=== PATIENT | female | born 1985 | race African-American/Black ===

== ENCOUNTER 2016-11-14 06:20 | Emergency (ER) | payer SELFPAY ==
[2016-11-14] MEDS ORDERED: PROCHLORPERAZINE EDISYLATE INJ 10 MG/2 ML VIAL IV ONE (07:29)
[2016-11-14] MEDS ORDERED: DEXAMETHASONE SOD PHOS INJ 10 MG/1 ML VIAL IV ONE (07:29)
[2016-11-14] MEDS ORDERED: DIPHENHYDRAMINE HCL 50 MG/ML VIAL IV ONE (07:29)
[2016-11-14] MEDS ORDERED: NORMAL SALINE 1000 ML 1,000 ML IV ONE (07:33)
[2016-11-14] MEDS ORDERED: KETOROLAC TROMETHAMINE INJ/PF 30 MG/1 ML SDV IV ONE (07:33)
--- NOTE | 2016-11-14 08:25 | ER Document Report ---
ED General - General Chief Complaint: Sore Throat Stated Complaint: SORE THROAT Time Seen by Provider: 11/14/16 07:14 TRAVEL OUTSIDE OF THE [place] IN LAST 30 DAYS: No - HPI Notes: Patient is a 30yo female who presents with sore throat, clogged rt ear, nasal anthony/discharge x 1 day. Pt reports dizziness yesterday but that has since resolved. She started having a mild-mod NIÑO this morning on the sides of her head (no radiation, light/noise sensitivity). Pt has been taking tylenol with some relief. She is still eating and drinking with no problems otherwise. No trouble swallowing or breathing. Denies any fever, ear pain, sinus pain, hoarseness, cough, wheeze, sob, dyspnea, cp, palp, syncope, abd pain, n/v/d, dysuria, hematuria, or rash. PMH significant for HTN and was on Lisinopril 20mg daily until she lost her insurance. [facility] Allergy to PCN's. - Related Data Allergies/Adverse Reactions: amoxicillin [Amoxicillin] Allergy (Verified 01/08/15 18:39) Penicillins Allergy (Verified 01/08/15 18:39) Past Medical History - Social History Smoking Status: Never Smoker Chew tobacco use (# tins/day): No Frequency of alcohol use: None Drug Abuse: None Family History: Arthritis, Hypertension Patient has suicidal ideation: No Patient has homicidal ideation: No - Past Medical History Cardiac Medical History: Reports: Hx Hypertension Endocrine Medical History: Reports: Hx Diabetes Mellitus Type 2 Renal/ Medical History: Denies: Hx Peritoneal Dialysis Past Surgical History: Reports: Hx Section - x2 - Immunizations Immunizations up to date: No Hx Diphtheria, Pertussis, Tetanus Vaccination: No Review of Systems - Review of Systems Notes: REVIEW OF SYSTEMS: CONSTITUTIONAL : Denies fever, chills, or sweats. Denies recent illness. EENT: see hpi CARDIOVASCULAR: Denies chest pain. Denies palpitations or racing or irregular heart beat. Denies ankle edema. RESPIRATORY: Denies cough, cold, or chest congestion. Denies shortness of breath, difficulty breathing, or wheezing. GASTROINTESTINAL: Denies abdominal pain or distention. Denies nausea, vomiting , or diarrhea. Denies blood in vomitus, stools, or per rectum. Denies black, tarry stools. Denies constipation. GENITOURINARY: Denies difficulty urinating, painful urination, burning, frequency, blood in urine, or discharge. MUSCULOSKELETAL: Denies back or neck pain or stiffness. Denies joint pain or swelling. SKIN: Denies rash, lesions or sores. NEUROLOGICAL: Denies confusion or altered mental status. Denies passing out or loss of consciousness. Denies dizziness or lightheadedness. Denies headache. Denies weakness or paralysis or loss of use of either side. Denies problems with gait or speech. Denies sensory loss, numbness, or tingling. Denies seizures. ALL OTHER SYSTEMS REVIEWED AND NEGATIVE. Dictation was performed using [employer] voice recognition software Physical Exam - Vital signs Vitals: Temp Pulse Resp BP Pulse Ox 98.4 F 120 H 18 150/100 H 96 11/14/16 06:35 11/14/16 06:35 11/14/16 06:35 11/14/16 06:35 11/14/16 06:35 Notes: PHYSICAL EXAMINATION: GENERAL: Well-appearing, well-nourished and in no acute distress. obese HEAD: Atraumatic, normocephalic. EYES: Pupils equal round and reactive to light, extraocular movements intact, sclera anicteric, conjunctiva are normal. ENT: EAC cerumen rt. Lt EAC clear. TM's intact b/l without erythema, fluid, or perforation. Nares patent and with clear discharge. oropharynx clear without exudates. 1+ tonsilar hypertrophy and erythemic without exudate. Moist mucous membranes. No sinus tenderness. NECK: Normal range of motion, supple without lymphadenopathy. No rigidity/ meningismus. LUNGS: Breath sounds clear to auscultation bilaterally and equal. No wheezes rales or rhonchi. HEART: Regular rate and rhythm without murmurs, rubs, gallops. ABDOMEN: Soft, nontender, nondistended abdomen. No guarding, no rebound. No masses appreciated. Normal bowel sounds present. No CVA tenderness bilaterally. Musculoskeletal: FROM to passive/active. Strength 5+/5. No deficits noted. Extremities: No cyanosis, clubbing, or edema b/l. Peripheral pulses 2+. Capillary refill less than 3 seconds. NEUROLOGICAL: Cranial nerves grossly intact. Normal speech, normal gait. Normal sensory, motor exams. Reflexes 2+ peripherally. NATALIE's intact. Heel-mejia intact. Pronator neg. PSYCH: Normal mood, normal affect. SKIN: Warm, Dry, normal turgor, no rashes or lesions noted. Course - Re-evaluation Re-evalutation: 11/14/16 09:35 Patient is an afebrile, well-hydrated, 30yo female who presents with acute URI based on H&P. Rapid strep negative. Migraine cocktail given of compazine 10mg , benadryl 50mg, and Toradol 15mg. I also provided her with decadron to help with the NIÑO and the tonsilar hypertrophy. Vitals are stable with a pulse of 99 now. Pt has previously taken Lisinopril 20mg daily but lost her insurance; 20mg Lisinopril given PO today along with a script for her to fill at [facility] ($ 4). Upon re-eval, patient reports that she is feeling much better. The headache is resolved and her sore throat is no longer sore. Pt is feeling really good (tired) and would like to go home. She is going to call for a ride due to her drowsiness. Conservative measures for symptoms. Advised strict BP monitoring and logs with recheck with PCM in 2-3 days. Return to the ED with worsening symptoms otherwise. Risks/benefits reviewed with the patient about dry cough and angioedema while on lisinopril. Pt verbalized understanding and is in agreement. - Vital Signs Vital signs: Temp Pulse Resp BP Pulse Ox 98.4 F 122 H 18 162/98 H 96 11/14/16 06:35 11/14/16 08:00 11/14/16 06:35 11/14/16 08:00 11/14/16 06:35 Discharge - Discharge Clinical Impression: URI (upper respiratory infection) Qualifiers: URI type: unspecified viral URI Qualified Code(s): J06.9 - Acute upper respiratory infection, unspecified Acute pharyngitis Qualifiers: Pharyngitis/tonsillitis etiology: unspecified etiology Qualified Code(s): J02.9 - Acute pharyngitis, unspecified Headache Qualifiers: Headache type: unspecified Headache chronicity pattern: acute headache Intractability: intractable Qualified Code(s): R51 - Headache Condition: Stable Disposition: HOME, SELF-CARE Instructions: Sore Throat ([facility]), Upper Respiratory Illness ([facility]), Viral Syndrome ([facility]) Additional Instructions: Headache The physician does not feel that the headache you are experiencing has a serious underlying cause. Most headaches are due to emotional stress, with resultant muscle tension (tension headache). Occasionally, headaches are secondary to changes in the blood vessels of the scalp (vascular headache and migraine headache). Sometimes, a headache is the first symptom of another developing illness, such as a viral infection. You have no evidence of stroke, bleeding, meningitis, or other serious cause of your headache. The treatment of headaches varies with the severity and cause of the pain. Not all headaches need pain shots. In fact, there is evidence that using narcotics for headaches may make them worse in the long run. The physician will determine the therapy that's in your best interest. If you develop a fever, if the headache is different from any you've previously experienced, or if the headache progressively worsens, then call your physician at once or go to the emergency room. Maintain adequate fluid intake Take meds as directed Monitor BP daily and keep a log tylenol/ibuprofen as needed over the counter cold medication as needed for symptoms F/u: with your PCM in 2-3 days for a recheck and continued management Return to the ED with any worsening symptoms and/or development of fever, headache, chest pain, palpitations, syncope, shortness of breath, trouble breathing, abdominal pain, n/v/d, blood in stool/urine, urinary retention, muscle weakness/paralysis, or other worsening symptoms that are concerning to you. Prescriptions: Lisinopril 20 mg PO DAILY #30 tablet Forms: Elevated Blood Pressure
[2016-11-14] MEDS ORDERED: LISINOPRIL 10 MG TABLET PO ONE (09:29)
[2016-11-14 09:43] VITALS: BP 152/103
== END 2016-11-14 09:52 | disposition home or self-care (01) ==
LOC: ER 06:20
DX: J06.9 Acute upper respiratory infection, unspecified (principal); J02.9 Acute pharyngitis, unspecified; R51 Headache; H92.01 Otalgia, right ear; R09.89 Other specified symptoms and signs involving the circulatory and respiratory systems; R09.81 Nasal congestion
CPT/HCPCS: 99283; 96374; 96375; 87070; 87880; 87077; J1200; J1885; J0780; J7030; J1100

== ENCOUNTER 2017-11-27 11:54 | Emergency (ER) | payer OTHER ==
[2017-11-27 12:05] VITALS: BP 190/109
[2017-11-27] MEDS ORDERED: LISINOPRIL 10 MG TABLET PO ONE (12:27)
[2017-11-27] MEDS ORDERED: DIPH/PERTUSS(ACELL)/TETANUS VAC/PF 0.5 ML SYR (>=10YO) IM ONE (12:27)
--- NOTE | 2017-11-27 12:30 | ER Document Report ---
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 Patient is uncertain when her last tetanus immunization was. Associated Symptoms: Other - Thumb laceration Exacerbated by: Movement Relieved by: Denies Similar symptoms previously: No Recently seen / treated by doctor: No - ROS ROS below otherwise negative: Yes Systems Reviewed and Negative: Yes All other systems reviewed and negative - NEURO Neurology: DENIES: Weakness - REPRODUCTIVE Reproductive: DENIES: : - MUSCULOSKELETAL Musculoskeletal: REPORTS: Extremity pain - DERM Skin Color: Normal Skin Problems: Laceration Past Medical History - General Information source: Patient - Social History Smoking Status: Never Smoker Frequency of alcohol use: None Drug Abuse: None Occupation: [employer] Family History: Arthritis, Hypertension - Past Medical History Cardiac Medical History: Reports: Hx Hypertension Endocrine Medical History: Reports: Hx Diabetes Mellitus Type 2 Renal/ Medical History: Denies: Hx Peritoneal Dialysis Past Surgical History: Reports: Hx Section - x2 - Immunizations Immunizations up to date: No Hx Diphtheria, Pertussis, Tetanus Vaccination: No Vertical Provider Document - CONSTITUTIONAL Agree With Documented VS: Yes Exam Limitations: No Limitations General Appearance: WD/WN, No Apparent Distress - INFECTION CONTROL TRAVEL OUTSIDE OF THE [place] IN LAST 30 DAYS: No - HEENT HEENT: Atraumatic, Normocephalic - NECK Neck: Normal Inspection - RESPIRATORY Respiratory: No Respiratory Distress - CARDIOVASCULAR Pulses: Normal: Radial - MUSCULOSKELETAL/EXTREMETIES Musculoskeletal/Extremeties: WICHO FROM - NEURO Level of Consciousness: Awake, Alert, Appropriate Motor/Sensory: No Motor Deficit - DERM Integumentary: Warm, Dry, Laceration - avulsion lac to distal tip of right thumb , no active bleeding Course - Re-evaluation Re-evalutation: 11/27/17 12:28 Patient states that she is out of her blood pressure medication which is why her blood pressure is up today. Pt without any chest pain, headache difficulty breathing symptoms. - Vital Signs Vital signs: Temp Pulse Resp BP Pulse Ox 98.4 F 98 18 190/109 H 98 11/27/17 12:03 11/27/17 12:03 11/27/17 12:03 11/27/17 12:11/27/17 12:03 Discharge - Discharge Clinical Impression: Hypertension Qualifiers: Hypertension type: unspecified Qualified Code(s): I10 - Essential (primary) hypertension Thumb laceration Qualifiers: Encounter type: initial encounter Damage to nail status: with damage Foreign body presence: without foreign body Laterality: right Qualified Code(s): S61.111A - Laceration without foreign body of right thumb with damage to nail, initial encounter Condition: Stable Disposition: HOME, SELF-CARE Instructions: Dressing Instructions for Open Wounds ([facility]), High Blood Pressure , Requiring Treatment ([facility]), Non-Sutured Laceration ([facility]), Tetanus Immunization Given ([facility]) Additional Instructions: Return immediately for any new or worsening symptoms Followup with your primary care provider, call tomorrow to make a followup appointment Prescriptions: Lisinopril 20 mg PO DAILY #30 tablet Forms: Return to Work Referrals: [facility] [Provider Group] - Follow up as needed [facility] [Provider Group] - Follow up as needed
== END 2017-11-27 12:53 | disposition home or self-care (01) ==
LOC: ER 11:54
DX: S61.011A Laceration without foreign body of right thumb without damage to nail, initial encounter (principal); W31.82XA Contact with other commercial machinery, initial encounter; Y99.0 Civilian activity done for income or pay; Z23 Encounter for immunization; I10 Essential (primary) hypertension; E11.9 Type 2 diabetes mellitus without complications
CPT/HCPCS: 90715; 99282

== ENCOUNTER 2017-11-30 10:53 | Inpatient (IN) | payer OTHER ==
--- NOTE | 2017-11-30 11:29 | ER Document Report ---
ED Medical Screen (RME) - General Chief Complaint: Shortness Of Breath Stated Complaint: SHORTNESS OF BREATH Time Seen by Provider: 11/30/17 11:22 Notes: RAPID MEDICAL EVALUATION DISCLOSURE I have seen this patient as part of a Rapid Medical Evaluation and, if applicable, placed any initially appropriate orders. The patient will be seen and fully evaluated, including a full history and physical exam, by a provider ( in Main ED or Fast Track) when a room becomes available. 31-year-old female PMH hypertension here with complaints of palpitations lightheadedness shortness of breath that started yesterday evening. The symptoms are worse with exertion. She denies chest pain. She has not tried any medication for the symptoms. She has missed the last 2 or 3 days of her blood pressure medicine and states that she has a refill waiting for her at the pharmacy. She denies any previous history of atrial fibrillation. EXAM CTAB Tachycardic with irregularly irregular rhythm TRAVEL OUTSIDE OF THE [place] IN LAST 30 DAYS: No - Related Data Allergies/Adverse Reactions: amoxicillin [Amoxicillin] Allergy (Verified 11/30/17 11:27) Penicillins Allergy (Verified 11/30/17 11:27) Past Medical History - Social History Chew tobacco use (# tins/day): No Frequency of alcohol use: None Drug Abuse: None - Past Medical History Cardiac Medical History: Reports: Hx Hypertension Endocrine Medical History: Reports: Hx Diabetes Mellitus Type 2 Renal/ Medical History: Denies: Hx Peritoneal Dialysis Past Surgical History: Reports: Hx Section - x2 - Immunizations Immunizations up to date: No Hx Diphtheria, Pertussis, Tetanus Vaccination: No Physical Exam - Vital signs Vitals: Temp Pulse Resp BP Pulse Ox 98.4 F 60 20 151/114 H 100 11/30/17 10:56 11/30/17 10:56 11/30/17 10:56 11/30/17 10:56 11/30/17 10:56 Course - Vital Signs Vital signs: Temp Pulse Resp BP Pulse Ox 98.4 F 60 20 151/114 H 100 11/30/17 10:56 11/30/17 10:56 11/30/17 10:56 11/30/17 10:56 11/30/17 10:56
[2017-11-30] MEDS ORDERED: DILTIAZEM HCL/D5W 125 MG/125 ML RTUINJ IV PRN (11:42)
[2017-11-30] MEDS ORDERED: DILTIAZEM HCL INJ 25 MG/5 ML VIAL ONE (12:10)
--- NOTE | 2017-11-30 12:10 | ER Document Report ---
ED Cardiac <LEE ANN GEORGE - Last Filed: 11/30/17 13:00> - General Mode of Arrival: Ambulatory Information source: Patient TRAVEL OUTSIDE OF THE [place] IN LAST 30 DAYS: No <MARLIN CORTES - Last Filed: 11/30/17 17:18> - General Chief Complaint: Shortness Of Breath Stated Complaint: SHORTNESS OF BREATH Time Seen by Provider: 11/30/17 11:22 Notes: 31-year-old female presenting to the emergency department today with complaints of a heart racing sensation. Patient states her symptoms began around 2200 last night. Patient states with this heart racing sensation she has developed shortness of breath. Patient states she is short of breath when trying to walk and also complains of shortness of breath when sitting still if talking. Patient denies any chest pain, leg pain, or leg swelling. (MARLIN CORTES) - Related Data Allergies/Adverse Reactions: amoxicillin [Amoxicillin] Allergy (Verified 11/30/17 11:27) Penicillins Allergy (Verified 11/30/17 11:27) Past Medical History - General Information source: Patient - Social History Smoking Status: Never Smoker Cigarette use (# per day): No Chew tobacco use (# tins/day): No Frequency of alcohol use: None Drug Abuse: None Lives with: Family Family History: Arthritis, Hypertension Patient has suicidal ideation: No Patient has homicidal ideation: No - Past Medical History Cardiac Medical History: Reports: Hx Hypertension Endocrine Medical History: Reports: Hx Diabetes Mellitus Type 2 Renal/ Medical History: Denies: Hx Peritoneal Dialysis Past Surgical History: Reports: Hx Section - x2 - Immunizations Immunizations up to date: No Hx Diphtheria, Pertussis, Tetanus Vaccination: No <MARLIN CORTES - Last Filed: 11/30/17 17:18> Review of Systems - Review of Systems Constitutional: No symptoms reported EENT: No symptoms reported Cardiovascular: See HPI, Palpitations, Heart racing Respiratory: See HPI, Short of breath Gastrointestinal: No symptoms reported Genitourinary: No symptoms reported Female Genitourinary: No symptoms reported Musculoskeletal: No symptoms reported Skin: No symptoms reported Hematologic/Lymphatic: No symptoms reported Neurological/Psychological: No symptoms reported -: Yes All other systems reviewed and negative <MARLIN CORTES - Last Filed: 11/30/17 17:18> Physical Exam <LEE ANN GEORGE - Last Filed: 11/30/17 13:00> <MARLIN CORTES - Last Filed: 11/30/17 17:18> - Vital signs Vitals: Temp Pulse Resp BP Pulse Ox 98.4 F 60 20 151/114 H 100 11/30/17 10:56 11/30/17 10:56 11/30/17 10:56 11/30/17 10:56 11/30/17 10:56 - Notes Notes: Physical Exam: General: Alert, morbidly obese. HEENT: Normocephalic. Atraumatic. PERRL. Extraocular movements intact. Oropharynx clear. Neck: Supple. Non-tender. Respiratory: No respiratory distress. Clear and equal breath sounds bilaterally. Cardiovascular: Tachycardic, irregularly irregular, consistent with A. fib with RVR. Abdominal: Morbidly obese. Non-tender. No distension. Normal Bowel Sounds. Back: Non-tender. No deformity or step off. Extremities: Moves all four extremities. Upper extremities: Normal inspection. Normal ROM. Lower extremities: No calf tenderness with palpation. No edema. Normal ROM. Neurological: Normal cognition. AAOx4. Normal speech. Psychological: Normal affect. Normal Mood. Skin: Warm. Dry. Normal color. (MARLIN CORTES) Course - Laboratory Result Diagrams: 11/30/17 12:03 11/30/17 12:03 - EKG Interpretation by Ri EKG shows normal: [place], QRS Complexes, ST-T Waves. abnormal: Intervals - Prolonged QT interval Rate: Tachycardia - 126 Rhythm: A.Fib When compared to previous EKG there are: Previous EKG unavailable - Consults Angus Gauthier Time consulted: 12:50 Consulted provider: will come to ER <LEE ANN GEORGE - Last Filed: 11/30/17 13:00> - Laboratory Result Diagrams: 11/30/17 12:03 11/30/17 13:42 <MARLIN CORTES - Last Filed: 11/30/17 17:18> - Vital Signs Vital signs: Temp Pulse Resp BP Pulse Ox 98.4 F 60 20 145/99 H 98 11/30/17 10:56 11/30/17 10:56 11/30/17 14:10 11/30/17 14:10 11/30/17 14:10 - Laboratory Laboratory results interpreted by me: 11/30/17 11/30/17 11/30/17 12:03 12:03 12:03 RBC 5.47 H MCV 77 L MCH 24.4 L MCHC 31.7 L RDW 18.0 H Plt Count 511 H Creatine Kinase 185 H TSH 0.37 L Critical Care Note - Critical Care Note Total time excluding time spent on procedures (mins): 30 <LEE ANN GEORGE - Last Filed: 11/30/17 13:00> Discharge - Discharge Admitting Provider: Hospitalist Unit Admitted: IMCU <LEE ANN GEORGE - Last Filed: 11/30/17 13:00> <MARLIN CORTES - Last Filed: 11/30/17 17:18> - Discharge Clinical Impression: New onset atrial fibrillation, Atrial fibrillation with RVR Hypertension Qualifiers: Hypertension type: essential hypertension Qualified Code(s): I10 - Essential ( primary) hypertension Condition: Stable Disposition: ADMITTED INPATIENT Scribe Attestation: 11/30/17 12:48 I personally performed the services described in the documentation, reviewed and edited the documentation which was dictated to the scribe in my presence, and it accurately records my words and actions. (LEE ANN GEORGE) Scribe Documentation - Scribe Written by Alvaro:: Alvaro Hutton, 11/30/2017 1717 acting as scribe for :: Damaris <MARLIN CORTES - Last Filed: 11/30/17 17:18>
[2017-11-30 12:16] LABS: ABSOLUTE BASOPHILS # (AUTO) 0.1 10^3/uL (0.0-0.2); ABSOLUTE LYMPHOCYTES (AUTO) 2.5 10^3/uL (0.5-4.7); ABSOLUTE MONOCYTES (AUTO) 0.8 10^3/uL (0.1-1.4); ABSOLUTE NEUT (AUTO) 4.7 10^3/uL (1.7-8.2); BASOPHILS % (AUTO) 0.6 % (0-2); EOSINOPHILS % (AUTO) 0.4 % (0-6); HEMOGLOBIN 13.3 g/dL (12.0-15.5); LYMPHOCYTES % (AUTO) 31.3 % (13-45); MEAN CORPUSCULAR HEMOGLOBIN 24.4 pg (27.0-33.4); MEAN CORPUSCULAR HGB CONC 31.7 g/dL (32.0-36.0); MEAN CORPUSCULAR VOLUME 77 fl (80-97); MONOCYTES % (AUTO) 10.1 % (3-13); PLATELET COUNT 511 10^3/uL (150-450); RED BLOOD COUNT 5.47 10^6/uL (3.72-5.28); SEGMENTED NEUTROPHILS % (AUTO) 57.6 % (42-78); TOTAL CELLS COUNTED % (AUTO) 100 %; WHITE BLOOD COUNT 8.1 10^3/uL (4.0-10.5)
--- NOTE | 2017-11-30 12:39 | RADIOLOGY REPORT (SQ) ---
EXAM DESCRIPTION: CHEST SINGLE VIEW COMPLETED DATE/TIME: 11/30/2017 12:31 pm REASON FOR STUDY: New onset atrial fibrillation COMPARISON: None. EXAM PARAMETERS: NUMBER OF VIEWS: One view. TECHNIQUE: Single frontal radiographic view of the chest acquired. RADIATION DOSE: NA LIMITATIONS: None. FINDINGS: LUNGS AND PLEURA: No opacities, masses or pneumothorax. No pleural effusion. MEDIASTINUM AND HILAR STRUCTURES: No masses. Contour normal. HEART AND VASCULAR STRUCTURES: Heart normal in size. Normal vasculature. BONES: No acute findings. HARDWARE: None in the chest. OTHER: No other significant finding. IMPRESSION: NO ACUTE RADIOGRAPHIC FINDING IN THE CHEST. TECHNICAL DOCUMENTATION: JOB ID: [id number] [employer]- All Rights Reserved Reading location - IP/workstation name: [email or web address]
[2017-11-30] MEDS ORDERED: DILTIAZEM HCL INJ 25 MG/5 ML VIAL IV ONE (13:14)
--- NOTE | 2017-11-30 13:47 | PDOC H&P ---
History of Present Illness Admission Date/PCP: Currently not established but has been followed by [facility] in the past. Patient complains of: Heart palpitations History of Present Illness: TASIA TAPIA is a 31 year old -[place]une[place] female with a past medical history of hypertension and morbid obesity with a BMI of greater than 50. Patient presented to the emergency department with a chief complaint of having heart flutters and palpitations. According to the patient her symptoms began last night while she was at work approximately 15 hours ago. Patient stated that she was eating ice when she suddenly felt her heart skipping beats. After a few moments the patient reported symptoms of lightheadedness and shortness of breath which were worse with activity. Patient adamantly denied any chest pain. She has not tried any medication for the symptoms. Patient was recently started on lisinopril however she is missed a couple doses because she has been waiting for a refill. Patient denies any history of hypothyroidism or atrial fibrillation. Patient denies any melena hematochezia no epigastric pain. The patient has never been on blood thinners. Patient is not taking oral contraceptives. While in the emergency department the patient was given a bolus of 20 of Cardizem and started on a drip and referred to the hospitalist for admission management. Past Medical History Cardiac Medical History: Reports: Hypertension Pulmonary Medical History: Reports: Sleep Apnea - Suspicion for, has never completed a sleep study Endocrine Medical History: Reports: Diabetes Mellitus Type 2 GI Medical History: Reports: Other - Morbid obesity Past Surgical History Past Surgical History: Reports: Section - x2 Social History Information Source: Patient Occupation: Works in the [employer] at [employer] also has another part-time job Lives with: Family Smoking Status: Never Smoker Frequency of Alcohol Use: Rare - over a week ago Hx Recreational Drug Use: No Hx Prescription Drug Abuse: No - Advance Directive Resuscitation Status: Full Code Surrogate healthcare decision maker:: Mother: Lisa Ashley can be reached at [phone] Family History Family History: Arthritis, Hypertension, Other - Denies any family history of atrial fibrillation or pulmonary emboli Parental Family History Reviewed: Yes Children Family History Reviewed: Yes Sibling(s) Family History Reviewed.: Yes Medication/Allergy Home Medications: Lisinopril [Prinivil] 20 mg PO DAILY 11/30/17 Allergies/Adverse Reactions: amoxicillin [Amoxicillin] Allergy (Verified 11/30/17 11:27) Penicillins Allergy (Verified 11/30/17 11:27) Review of Systems Constitutional: ABSENT: chills, fever(s), headache(s), weight gain, weight loss Eyes: ABSENT: visual disturbances Ears: ABSENT: hearing changes Cardiovascular: PRESENT: dyspnea on exertion, palpitations. ABSENT: chest pain , edema, orthropnea Respiratory: ABSENT: cough, hemoptysis Gastrointestinal: ABSENT: abdominal pain, constipation, diarrhea, hematemesis, hematochezia, nausea, vomiting Genitourinary: ABSENT: dysuria, hematuria Musculoskeletal: ABSENT: joint swelling Integumentary: ABSENT: rash, wounds Neurological: ABSENT: abnormal gait, abnormal speech, confusion, dizziness, focal weakness, syncope Psychiatric: ABSENT: anxiety, depression, homidical ideation, suicidal ideation Endocrine: ABSENT: cold intolerance, heat intolerance, polydipsia, polyuria Hematologic/Lymphatic: ABSENT: easy bleeding, easy bruising Physical Exam Vital Signs: Temp Pulse Resp BP Pulse Ox 98.4 F 60 20 151/114 H 100 11/30/17 10:56 11/30/17 10:56 11/30/17 10:56 11/30/17 10:56 11/30/17 10:56 Intake & Output 11/28/17 11/29/17 11/30/17 23:59 23:59 23:59 Weight 134 kg General appearance: PRESENT: no acute distress, cooperative, morbidly obese, well-developed Head exam: PRESENT: atraumatic, normocephalic Eye exam: PRESENT: conjunctiva pink, EOMI, PERRLA. ABSENT: scleral icterus Ear exam: PRESENT: normal external ear exam Mouth exam: PRESENT: moist, tongue midline Neck exam: ABSENT: carotid bruit, JVD, lymphadenopathy, thyromegaly Respiratory exam: PRESENT: clear to auscultation geraldine. ABSENT: rales, rhonchi, wheezes Cardiovascular exam: PRESENT: irregular rhythm. ABSENT: diastolic murmur, rubs , systolic murmur Pulses: PRESENT: normal dorsalis pedis pul Vascular exam: PRESENT: normal capillary refill GI/Abdominal exam: PRESENT: normal bowel sounds, soft. ABSENT: distended, guarding, mass, organolmegaly, rebound, tenderness Rectal exam: PRESENT: deferred Extremities exam: PRESENT: full ROM. ABSENT: calf tenderness, clubbing, pedal edema Neurological exam: PRESENT: alert, awake, oriented to person, oriented to place , oriented to time, oriented to situation, CN II-XII grossly intact. ABSENT: motor sensory deficit Psychiatric exam: PRESENT: appropriate affect, normal mood. ABSENT: homicidal ideation, suicidal ideation Skin exam: PRESENT: dry, intact, warm. ABSENT: cyanosis, rash Results Laboratory Results: 11/30/17 12:03 11/30/17 12:03 11/30/17 11/30/17 11/30/17 12:03 12:03 12:03 WBC 8.1 RBC 5.47 H Hgb 13.3 Hct 42.0 MCV 77 L MCH 24.4 L MCHC 31.7 L RDW 18.0 H Plt Count 511 H Seg Neutrophils % 57.6 Lymphocytes % 31.3 Monocytes % 10.1 Eosinophils % 0.4 Basophils % 0.6 Absolute Neutrophils 4.7 Absolute Lymphocytes 2.5 Absolute Monocytes 0.8 Absolute Eosinophils 0.0 Absolute Basophils 0.1 Sodium Cancelled Potassium Cancelled Chloride Cancelled Carbon Dioxide Cancelled Anion Gap Cancelled BUN Cancelled Creatinine Cancelled Est GFR ( Amer) Cancelled Est GFR (Non-Af Amer) Cancelled Glucose Cancelled Calcium Cancelled Phosphorus Cancelled Magnesium Cancelled Total Bilirubin Cancelled AST Cancelled ALT Cancelled Alkaline Phosphatase Cancelled Total Protein Cancelled Albumin Cancelled TSH 0.37 L 11/30/17 11/30/17 12:03 12:03 Creatine Kinase 185 H Troponin I < 0.012 Impressions: Chest X-Ray 11/30/17 12:10 IMPRESSION: NO ACUTE RADIOGRAPHIC FINDING IN THE CHEST. Assessment & Plan - Diagnosis (1) Atrial fibrillation with RVR Is this a current diagnosis for this admission?: Yes Plan: Will consult Cardiology. Will obtain echocardiogram, thyroid studies. Cover with full dose Lovenox and Cardizem drip for now. High suspicion for sleep apnea /pulmonary hypertension. (2) Hypertension Qualifiers: Hypertension type: essential hypertension Qualified Code(s): I10 - Essential (primary) hypertension Is this a current diagnosis for this admission?: Yes Plan: Will defer starting any antihypertensive medication at this time given that the patient is on the drip to give us some blood pressure to work with. (3) Morbid obesity with BMI of 50.0-59.9, adult Is this a current diagnosis for this admission?: Yes Plan: Encourage weight reduction. At this point may benefit for referral for bariatric surgery. - Time Time Spent: 50 to 70 Minutes Medications reviewed and adjusted accordingly: Yes Anticipated discharge: Home Within: within 24 hours, within 48 hours Disposition: The patient is a full code. Pending patient's symptomatology and diagnostic findings will reevaluate in the a.m. Will admit the patient to inpatient IMCU as the patient suspected length of stay will surpass 2 midnights. - Inpatient Certification Based on my medical assessment, after consideration of the patient's comorbidities, presenting symptoms, or acuity I expect that the services needed warrant INPATIENT care.: Yes I certify that my determination is in accordance with my understanding of Medicare's requirements for reasonable and necessary INPATIENT services [42 CFR 412.3e].: Yes Medical Necessity: Need Close Monitoring Due to Risk of Patient Decompensation, Need For Continuous Telemetry Monitoring, Other Post Hospital Care: D/C or Transfer Summary
[2017-11-30 14:13] LABS: ALANINE AMINOTRANSFERASE 29 U/L (9-52); ALBUMIN 4.4 g/dL (3.5-5.0); ALKALINE PHOSPHATASE 70 U/L (38-126); ANION GAP 11 (5-19); ASPARTATE AMINO TRANSFERASE 21 U/L (14-36); BILIRUBIN,DIRECT 0.2 mg/dL (0.0-0.4); BILIRUBIN,TOTAL 0.7 mg/dL (0.2-1.3); BLOOD UREA NITROGEN 13 mg/dL (7-20); CALCIUM 9.6 mg/dL (8.4-10.2); CARBON DIOXIDE 26 mmol/L (22-30); CHLORIDE 105 mmol/L (98-107); GLUCOSE 87 mg/dL (75-110); PHOSPHORUS 3.7 mg/dL (2.5-4.5); POTASSIUM 4.6 mmol/L (3.6-5.0); SODIUM 142.1 mmol/L (137-145); TOTAL PROTEIN 7.9 g/dL (6.3-8.2)
[2017-11-30] MEDS ORDERED: ENOXAPARIN SODIUM INJ 150 MG/1 ML DISP.SYRIN SUBCUT ONE (14:30)
[2017-11-30] MEDS ORDERED: DILTIAZEM HCL 30 MG TABLET PO ONE (16:30)
[2017-11-30 20:27] LABS: APPEARANCE,URINE CLEAR; BILIRUBIN,URINE NEGATIVE (NEGATIVE); COLOR,URINE STRAW; GLUCOSE, URINE NEGATIVE (NEGATIVE); KETONES,URINE NEGATIVE (NEGATIVE); LEUKOCYTE ESTERASE,URINE NEGATIVE (NEGATIVE); NITRITE,URINE NEGATIVE (NEGATIVE); PROTEIN,URINE NEGATIVE (NEGATIVE); URINE SPECIFIC GRAVITY 1.005; UROBILINOGEN,URINE NEGATIVE mg/dL (<2.0)
[2017-11-30] MEDS: ENOXAPARIN SODIUM INJ 150 MG/1 ML DISP.SYRIN SUBCUT SCH (21:16)
--- NOTE | 2017-11-30 21:36 | EKG REPORT ---
SEVERITY:- NORMAL ECG - SINUS RHYTHM : Confirmed by: Masha Valdez MD 30-Nov-2017 21:35:57
--- NOTE | 2017-11-30 21:38 | EKG REPORT ---
SEVERITY:- ABNORMAL ECG - ATRIAL FIBRILLATION, V-RATE 93-163 PAIRED VENTRICULAR PREMATURE COMPLEXES PROLONGED QT INTERVAL : Confirmed by: Masha Valdez MD 30-Nov-2017 21:37:38
[2017-12-01] MEDS: DILTIAZEM HCL 30 MG TABLET PO SCH ×3 (00:28→12:00)
--- NOTE | 2017-12-01 04:16 | CONSULTATION REPORT E ---
Consultation Report NAME: TASIA TAPIA : 1985 AGE: 31Y DATE: 11/30/2017 304 B TO: NEAL MEYER M.D. FROM: LEE ANN GEORGE M.D. Requesting Physician REASON FOR CONSULTATION: Paroxysmal atrial fibrillation, new onset. The patient seen at 4:30 p.m. Sixty minutes spent on the patient, with more than 50% o the time spent on direct patient care. Her medications have been reviewed. HISTORY OF PRESENT ILLNESS: The patient is a morbidly obese -Greek female with a history of hypertension who has not yet regularly been taking her medications. She states that last night at work she started having palpitations. She came home and rested, thinking that calming herself she would feel better. She was short of breath, but there was no diaphoresis. She felt dizziness, but no syncope. There was no chest pain or discomfort. There was no PND, orthopnea, or leg edema. The patient states that this continued and she came into the emergency room, where they gave her Cardizem intravenously, and subsequently the patient converted to sinus rhythm. At present, the patient had no palpitations and no complaints. PAST MEDICAL HISTORY: Positive for a history of hypertension. She has not been very regular in taking her medications. She has no history of diabetes mellitus. No thyroid disease. There is no history of coronary artery disease, congenital heart disease. No history of OH, angina, or CHF. There is no prior palpitations. This is the first episode of paroxysmal atrial fibrillation. There is no TIA or CVA. There are no seizures or headaches. PAST SURGICAL HISTORY: Positive for x2. ALLERGIES: THE PATIENT IS ALLERGIC TO AMOXICILLIN AND PENICILLIN. FAMILY HISTORY: Positive for hypertension, and is negative for coronary artery disease. There is a history of arthritis in the family. There is no family history of atrial fibrillation or any other cardiac arrhythmia. No history of coronary artery disease. No history of premature coronary artery disease or sudden in the family. SOCIAL HISTORY: The patient has never smoked. There is no history of EtOH abuse. ADVANCED DIRECTIVES: The patient is a full code. Her mother is her healthcare decision maker, Ms. Lisa Ashley. REVIEW OF SYSTEMS: CONSTITUTIONAL: Denies any fever, chills, or rigors. Does have some generalized fatigue, but no weakness. HEAD: Denies headaches. She felt some dizziness when she had atrial fibrillation with rapid ventricular response rate. EYES: No history of amblyopia or diplopia. No history of amaurosis fugax. EARS: No history of tinnitus. No history of hearing loss. No history of recurrent ear infections. NOSE: No history of hay fever. No history of rhinitis. No history of nosebleeds. No history of nasal polyps. MOUTH: No history of altered taste sensation. No ulcers in the mouth. No bleeding from the gums. THROAT: No odynophagia or dysphagia. No history of recurrent sore throats. SKIN: No history of pruritus. No history of yellowish discoloration of the skin. No history of eczema. No history of skin cancer. No psoriasis. LUNGS: No history of asthma or COPD. No history of wheezing. No history of cough or sputum production. No history of pulmonary embolism. No history of symptoms of upper respiratory tract infection or lower respiratory tract infection. No pleuritic chest pain. No hemoptysis. The patient does have classical symptoms of sleep apnea. Her oropharynx is conducive to someone with obstructive sleep apnea. She says that she has been snoring and has been told that she stops breathing in her sleep. When she wakes up after a night's sleep, she does not feel rested, but feels very tired. The patient has not had a sleep study, but she has obstructive sleep apnea. CARDIAC: History of hypertension present. First episode of atrial fibrillation. No history of congestive heart failure. There is dizziness present, but no syncope. No history of coronary artery disease or OH or angina symptoms. No history of congestive heart failure. No history of coronary heart disease. No history of PND, orthopnea, or leg edema. No syncope. MUSCULOSKELETAL: She denies arthritis or collagen vascular disease. RENAL: No history of chronic kidney disease. No history of UTI symptoms. No history of hematuria, pyuria, or dysuria. GASTROINTESTINAL: No history of GERD. No history of fatty food intolerance. No history of peptic ulcer disease. No history of GI bleed. No history of abdominal pain. No history of cirrhosis. No history of jaundice. No altered bowel movements. ENDOCRINE: No history of diabetes mellitus. No history of thyroid disease. No history of polydipsia or polyuria. No history of heat or cold intolerance. No history of hirsutism or excessive sweating. CENTRAL NERVOUS SYSTEM: No history of headache, seizures, or migraines. No history of TIA or CVA. PSYCHIATRIC: No history of anxiety or depression. No history of suicidal ideation. No homicidal ideation. VASCULAR: No history of calf or buttock claudication. No history of DVT. HEMATOLOGICAL: No history of bleeding diatheses. No history of clotting disorders. MEDICATIONS: 1. Cardizem intravenously was stopped. 2. She is on Cardizem 30 mg p.o. x1 and 30 mg p.o. q. 6 hours. 3. She is on Lovenox at 135 mg subcutaneously q. 12 hours. PHYSICAL EXAMINATION: GENERAL: The patient is morbidly obese. At present, in no acute distress. VITAL SIGNS: She is afebrile with a temperature of 98.6 degrees Fahrenheit. Pulse is 86 beats per minute. Her monitor shows regular sinus rhythm. Blood pressure is 143/90. Respirations are 18 per minute. O2 sats are 98% on room air. HEENT: Head is atraumatic, normocephalic. Eyes: Pupils are equal, round, regular, reactive to light and accommodation. Extraocular movements are normal. There is no conjunctival pallor. There is no scleral icterus. Ears: Tympanic membranes are intact. External auditory canals are clear. Nose: There is no deviated nasal septum. There is no inflammation of the nasal mucous membranes. Mouth: Mucous membranes of the mouth are moist. Tongue is moist. There are no ulcers. There is no bleeding from the gums. Throat: There is no redness of the oropharynx. There are no exudates. SKIN: There are no skin rashes. There is no petechia or ecchymosis. There are no skin lesions. NECK: Supple. There is no JVD. Carotids are equal. There is no bruit. There is no lymphadenopathy. There is no goiter. Trachea is central. LUNGS: Clear to auscultation and percussion, without any rhonchi,rales, or wheezing. There is no chest wall tenderness. HEART: S1 and S2 are heard. S1 is of normal intensity. There is no S3 gallop. There is no S4 gallop. There is a systolic murmur at the left sternal border on the apex, but there is no rub. ? murmur or mitral regurgitation. There are no clicks heart. There is no rub. ABDOMEN: Soft, obese, nontender. There is no hepatosplenomegaly. Bowel sounds are well heard. There are no tender areas or masses. EXTREMITIES: Femorals are deep. Femoral are diminished. There are no femoral bruits. Leg pulses well felt. There is no pedal edema. There is no DVT or cellulitis. There is no calf tenderness. There is no cyanosis or clubbing. CENTRAL NERVOUS SYSTEM: The patient is conscious, awake, alert, oriented x3, with no focal deficits. PSYCHIATRIC: The patient's judgment and insight are intact. Her affect is normal. IMAGING STUDIES: The patient's chest x-ray shows no acute radiographic findings. The chest x-ray was reviewed by me and interpreted by me. The patient's EKG initial showed atrial fibrillation with rapid ventricular response, prolonged QT interval. There are paired PVCs. The patient's second EKG shows sinus rhythm, within normal limits. LABORATORY DATA: The patient's sodium is 142.1, potassium 4.6, chloride is 105, CO2 is 26. The patient's BUN is 13. Creatinine is 0.72. GFR is greater than 60. Her glucose is 87. Hemoglobin A1c is 5.6. Her calcium is 9.6. Phosphorus is 3.7. Magnesium is 1.9, and her liver function tests are normal. Her CPK is 185. Her total protein is 7.9. Albumin is 4.4. The patient's TSH is low at 0.37, but she has a normal free T4 at 1.46 and normal free T3 at 3.95. The patient's white count is 8100, hemoglobin is 13.3, hematocrit is 42, and platelet count is 511,000. The patient's D-dimer is 0.32. IMPRESSION: 1. Paroxysmal atrial fibrillation, converted to sinus rhythm. Note: This is the first episode. Although the patient's CHADS-VASc 2 corrected score is 2, this may be because of untreated hypertension and the patient not using CPAP for her sleep apnea. 2. Systolic murmur, ? mitral regurgitation significance. 3. Hypertension. 4. Morbid obesity. 5. Obstructive sleep apnea by clinical diagnosis. RECOMMENDATIONS: 1. I agree with Cardizem plain. I would convert her to Cardizem CD 120 mg p.o. daily.Add ECASA 324 mg po daily. 2. For the systolic murmur, would recommend that the patient have an echocardiogram and be checked for any mitral valve pathology along with to find out the significance of the mitral regurgitation. Echocardiogram could be done as an outpatient. 3. Also would recommend a 30-day event monitor to see if the patient has recurrence of her atrial fibrillation. 4. ANSHU as OPD recommend that the patient get as soon as possible a sleep study and get CPAP for obstructive sleep apnea since this could be one of the factors that could trigger the patient to go into atrial fibrillation. Note: Her medications have been reviewed. Medical decision-making is of moderate to high complexity. Discussed with patient. Discussed with the hospitalist taking care of patient and her other care-giving providers on the case. Note: Sixty minutes spent on this patient, with more than 50% of the time spent on direct patient care. I will sign off and will follow the patient as an outpatient since the patient is desirous of following up with me. Thank you. DICTATING PHYSICIAN: NEAL MEYER M.D. [id number] PHY#: [id number] ID: [id number] JOB#: [id number] ACCT: [id number] cc:NEAL MEYER M.D. > MTDD
[2017-12-01 06:02] LABS: HEMATOCRIT 35.8 % (36.0-47.0); HEMOGLOBIN 11.7 g/dL (12.0-15.5); MEAN CORPUSCULAR HEMOGLOBIN 24.8 pg (27.0-33.4); MEAN CORPUSCULAR HGB CONC 32.6 g/dL (32.0-36.0); MEAN CORPUSCULAR VOLUME 76 fl (80-97); PLATELET COUNT 434 10^3/uL (150-450); RED BLOOD COUNT 4.71 10^6/uL (3.72-5.28); RED CELL DISTRIBUTION WIDTH 17.9 % (11.5-14.0); WHITE BLOOD COUNT 8.7 10^3/uL (4.0-10.5)
[2017-12-01 06:19] LABS: ANION GAP 11 (5-19); BLOOD UREA NITROGEN 11 mg/dL (7-20); CALCIUM 9.4 mg/dL (8.4-10.2); CARBON DIOXIDE 25 mmol/L (22-30); CHLORIDE 105 mmol/L (98-107); CHOLESTEROL 218.82 mg/dL (0-200); GLUCOSE 95 mg/dL (75-110); SODIUM 140.8 mmol/L (137-145); TRIGLYCERIDES 191 mg/dL (<150)
[2017-12-01 06:29] LABS: DIRECT LDL 98 mg/dL (<100)
[2017-12-01 06:42] LABS: VLDL CHOLESTEROL 38.2 mg/dL (10-31)
[2017-12-01] MEDS: ENOXAPARIN SODIUM INJ 150 MG/1 ML DISP.SYRIN SUBCUT SCH (10:34)
[2017-12-01 11:22] VITALS: BP 131/95
--- NOTE | 2017-12-01 13:35 | PDOC DISCHARGE SUMMARY ---
General - Admit/Disc Date/PCP Admission Date/Primary Care Provider: 11/30/17 13:55 Discharge Date: 12/01/17 - Discharge Diagnosis (1) Atrial fibrillation with RVR Is this a current diagnosis for this admission?: Yes Summary: New diagnosis. Unclear precipitating factor. TSH and electrolytes wnl. - Pt has morbid obesity and likely SHERYL which can cause Afib - Was seen by cardiology inpatient - On day of transfer was feeling well and had no symptoms Discharge plan - Ordered Cardizem 120mg daily - Ordered Eliquis 5mg BID given CHADS2 score 2 - Follow up with DR. Meier. If BP can be better managed, would consider ASA 81mg daily instead of Eliquis. Will defer to outpatient management - manager staffing provided patient with voucher for 30 day Eliquis - Should have sleep study ordered as outpatient (2) Hypertension Is this a current diagnosis for this admission?: Yes Summary: Pt has known history of HTN - Continue home Lisinopril - Started on Cardizem per above (3) Morbid obesity with BMI of 50.0-59.9, adult Is this a current diagnosis for this admission?: Yes Summary: Encouraged healthy lifestyle with diet, exercise, and weight loss (4) Systolic murmur Is this a current diagnosis for this admission?: Yes Summary: Noted on exam - Should have outpatient echo - Will be obtained by Dr. Meier - Additional Information Resuscitation Status: Full Code Discharge Diet: Cardiac Discharge Activity: Activity As Tolerated, Walk Frequently Prescriptions: Apixaban [Eliquis 5 mg Tablet] 5 mg PO BID #60 tablet Diltiazem HCl [Cardizem Cd 120 mg Capsule] 1 cap.sr PO DAILY #30 cap.sr Home Medications: Lisinopril [Prinivil] 20 mg PO DAILY 11/30/17 Apixaban [Eliquis 5 mg Tablet] 5 mg PO BID #60 tablet 12/01/17 Diltiazem HCl [Cardizem Cd 120 mg Capsule] 1 cap.sr PO DAILY #30 cap.sr History of Present Illness History of Present Illness: TASIA TAPIA is a 31 year old -[place]ir[place] female with a past medical history of hypertension and morbid obesity with a BMI of greater than 50. Patient presented to the emergency department with a chief complaint of having heart flutters and palpitations. According to the patient her symptoms began last night while she was at work approximately 15 hours ago. Patient stated that she was eating ice when she suddenly felt her heart skipping beats. After a few moments the patient reported symptoms of lightheadedness and shortness of breath which were worse with activity. Patient adamantly denied any chest pain. She has not tried any medication for the symptoms. Patient was recently started on lisinopril however she is missed a couple doses because she has been waiting for a refill. Patient denies any history of hypothyroidism or atrial fibrillation. Patient denies any melena hematochezia no epigastric pain. The patient has never been on blood thinners. Patient is not taking oral contraceptives. While in the emergency department the patient was given a bolus of 20 of Cardizem and started on a drip and referred to the hospitalist for admission management. Admitted to hospitalist medicine for further evaluation. Physical Exam Vital Signs: Temp Pulse Resp BP Pulse Ox 97.8 F 86 18 131/95 H 99 12/01/17 11:21 12/01/17 11:21 12/01/17 11:21 12/01/17 11:21 12/01/17 11:21 Intake & Output 11/30/17 12/01/17 12/02/17 06:59 06:59 06:59 Intake Total 1270 1122 Output Total 800 Balance 470 1122 General appearance: PRESENT: no acute distress, cooperative, morbidly obese Head exam: PRESENT: normocephalic Mouth exam: PRESENT: moist Respiratory exam: PRESENT: unlabored. ABSENT: tachypnea Cardiovascular exam: PRESENT: RRR, systolic murmur. ABSENT: tachycardia GI/Abdominal exam: PRESENT: soft. ABSENT: tenderness Extremities exam: PRESENT: +1 edema Neurological exam: PRESENT: alert, awake, CN II-XII grossly intact Psychiatric exam: PRESENT: appropriate affect Skin exam: PRESENT: dry, intact Results Laboratory Results: 12/01/17 04:51 12/01/17 04:51 11/30/17 12/01/17 12/01/17 20:02 04:51 04:51 WBC 8.7 RBC 4.71 Hgb 11.7 L Hct 35.8 L MCV 76 L MCH 24.8 L MCHC 32.6 RDW 17.9 H Plt Count 434 Sodium 140.8 Potassium 4.0 Chloride 105 Carbon Dioxide 25 Anion Gap 11 BUN 11 Creatinine 0.74 Est GFR ( Amer) > 60 Est GFR (Non-Af Amer) > 60 Glucose 95 Calcium 9.4 Magnesium 1.8 Triglycerides 191 H Cholesterol 218.82 H LDL Cholesterol Direct 98 VLDL Cholesterol 38.2 H HDL Cholesterol 71 Urine Color STRAW Urine Appearance CLEAR Urine pH 7.0 Ur Specific [place] 1.005 Urine Protein NEGATIVE Urine Glucose (UA) NEGATIVE Urine Ketones NEGATIVE Urine Blood NEGATIVE Urine Nitrite NEGATIVE Ur Leukocyte Esterase NEGATIVE Urine WBC (Auto) 1 Impressions: Chest X-Ray 11/30/17 12:10 IMPRESSION: NO ACUTE RADIOGRAPHIC FINDING IN THE CHEST. Qualifiers - * PATIENT BEING DISCHARGED WITH ANY OF THE FOLLOWING DIAGNOSIS: No Plan Time Spent: Greater than 30 Minutes
== END 2017-12-01 12:46 | DRG 309 ==
LOC: ER 10:53 → EH 13:55 → 3N 15:29
PROVIDERS: ADMIT Student in an Organized Health Care Education/Training Program; ATTEND Student in an Organized Health Care Education/Training Program
DX: I48.0 Paroxysmal atrial fibrillation (principal); Z68.43 Body mass index [BMI] 50.0-59.9, adult; I10 Essential (primary) hypertension; E66.01 Morbid (severe) obesity due to excess calories; R01.1 Cardiac murmur, unspecified; G47.33 Obstructive sleep apnea (adult) (pediatric); I45.81 Long QT syndrome; I49.3 Ventricular premature depolarization; E11.9 Type 2 diabetes mellitus without complications; Z88.0 Allergy status to penicillin; Z82.61 Family history of arthritis; Z82.49 Family history of ischemic heart disease and other diseases of the circulatory system
CPT/HCPCS: 36415; 71045; 80048; 80053; 80061; 81001; 81025; 82550; 83036; 83735; 84100; 84439; 84443; 84481; 84484; 85025; 85027; 85379; 93005; 93010; 94660; J3490

== ENCOUNTER 2019-05-15 15:31 | Emergency (ER) | payer OTHER ==
[2019-05-15 16:22] VITALS: BP 154/100
--- NOTE | 2019-05-15 16:32 | ER Document Report ---
HPI - HPI Time Seen by Provider: 05/15/19 16:22 Pain Level: 3 Notes: Patient is a 33-year-old female who presents complaining of right sinus pressure and fullness behind the right ear that is been present for the past couple days. She is able to eat and drink without difficulty. She is urinating normally. She has no other concerns or complaints. Pains do not radiate. Patient states that feels like it is clogged or needs to "pop." Denies any headache, fever, n letty pain, sore throat, chest pain, palpitations, syncope, cough, shortness of breath, wheeze, dyspnea, abdominal pain, nausea/vomiting/diarrhea, urinary retention, dysuria, hematuria, or rash. - ROS Systems Reviewed and Negative: Yes All other systems reviewed and negative - CONSTITUTIONAL Constitutional: DENIES: Fever, Chills - EENT EENT: REPORTS: Ear Pain - REPRODUCTIVE Reproductive: DENIES: : Past Medical History - Social History Smoking Status: Unknown if Ever Smoked Family History: Arthritis, Hypertension, Other - Denies any family history of atrial fibrillation or pulmonary emboli Patient has suicidal ideation: No Patient has homicidal ideation: No - Past Medical History Cardiac Medical History: Reports: Hx Hypertension Pulmonary Medical History: Reports: Hx Sleep Apnea - Suspicion for, has never completed a sleep study Endocrine Medical History: Reports: Hx Diabetes Mellitus Type 2 Renal/ Medical History: Denies: Hx Peritoneal Dialysis Past Surgical History: Reports: Hx Section - x2 - Immunizations Immunizations up to date: No Hx Diphtheria, Pertussis, Tetanus Vaccination: No Vertical Provider Document - CONSTITUTIONAL Agree With Documented VS: Yes Notes: PHYSICAL EXAMINATION: GENERAL: Well-appearing, well-nourished and in no acute distress. A&Ox4. Answers questions appropriately. Moves comfortably w/o notable distress HEAD: Atraumatic, normocephalic. EYES: Pupils equal round and reactive to light, extraocular movements intact, sclera anicteric, conjunctiva are normal. ENT: Rt EAC- cerumen impaction. Lt EAC wnl. Nares patent and with clear discha rge. oropharynx no erythema without exudates. No tonsilar hypertrophy without erythema or exudate. No palatine shift. Uvula midline. No tongue protrusion. No drooling, hoarseness, or airway compromise. Moist mucous membranes. No sinus tenderness. NECK: Normal range of motion, supple without lymphadenopathy. No rigidity/meningismus. LUNGS: Breath sounds clear to auscultation bilaterally and equal. No wheezes rales or rhonchi. No retractions HEART: Regular rate and rhythm without murmurs, rubs, gallops. NEUROLOGICAL: Normal speech, normal gait. PSYCH: Normal mood, normal affect. SKIN: Warm, Dry, normal turgor, no rashes or lesions noted. - INFECTION CONTROL TRAVEL OUTSIDE OF THE [place] IN LAST 30 DAYS: No Course - Re-evaluation Re-evalutation: 05/15/19 16:29 Patient is an afebrile, well-hydrated, 33-year-old female who presents with acute sinusitis, suspect viral, and secondary eustachian tube dysfunction. She also has cerumen impaction of the right EAC. Vitals are acceptable without significant tachycardia, tachypnea, hypoxia. PE is otherwise unremarkable. Patient is nontoxic-appearing and is tolerating p.o. without difficulty. No labs or imaging warranted. Low suspicion for any sepsis, meningitis, severe dehydration, respiratory compromise, mastoiditis, or other systemic emergent condition at this time. Patient is aware that condition can change from initial presentation and she needs to monitor symptoms closely and seek medical attention with any acute changes. I will send her home with a prescription for Debrox. Recheck with your PCM in 3 to 5 days. Return to the ED with any other worsening/concerning symptoms. Patient is in agreement. - Vital Signs Vital signs: Temp Pulse Resp BP Pulse Ox 98.2 F 103 H 16 154/100 H 100 05/15/19 16:21 05/15/19 16:21 05/15/19 16:21 05/15/19 16:21 05/15/19 16:21 Discharge - Discharge Clinical Impression: Sinus congestion, Impacted cerumen, right ear Eustachian tube dysfunction Qualifiers: Laterality: right Qualified Code(s): H69.81 - Other specified disorders of Eustachian tube, right ear Condition: Stable Disposition: HOME, SELF-CARE Additional Instructions: Maintain adequate fluid intake tylenol/ibuprofen as needed alternating every 3 hours for fever/body ache over the counter cold medication as needed for symptoms (i.e. afrin and nasal saline rinses but do not use afrin for more than 5 days). Avoid use of q-tips in ears, use drops as directed Humidified air may help Wash your hands regularly Wear a mask when coughing F/u: with your PCM in 3-5 days for a recheck Return to the ED with any fever, altered mental status/behavior, chest pain, palpitations, syncope, headache, neck pain/stiffness, shortness of breath, chest pains, wheezing, drooling, trouble swallowing/breathing, abdominal pain, n/v/d, rash, or worsening/concerning symptoms otherwise. Prescriptions: Carbamide Peroxide [Debrox] 5 drop OT TID #1 bottle Forms: Elevated Blood Pressure Referrals: ANISH MARQUES DO [ASSOCIATE] - Follow up as needed
== END 2019-05-15 16:34 | disposition home or self-care (01) ==
LOC: ER 15:31
DX: J01.90 Acute sinusitis, unspecified (principal); H69.91 Unspecified Eustachian tube disorder, right ear; H61.21 Impacted cerumen, right ear; R09.81 Nasal congestion; H92.09 Otalgia, unspecified ear; I10 Essential (primary) hypertension; E11.9 Type 2 diabetes mellitus without complications
CPT/HCPCS: 99282